=== PATIENT | female | born 1955 | race Caucasian/White ===

== ENCOUNTER 2022-06-18 08:45 | Outpatient (CLI) | payer BC | END 2022-06-18 08:46 | disposition home or self-care (01) | LOC: SCSRAD 08:45 | PROVIDERS: ATTEND Family Medicine | DX: M79.644 Pain in right finger(s) (principal); M79.645 Pain in left finger(s); M19.042 Primary osteoarthritis, left hand; M19.041 Primary osteoarthritis, right hand ==